=== PATIENT | male | born 1955 | race Caucasian/White ===

== ENCOUNTER → 2017-01-20 | Outpatient (REF) ==
--- NOTE | 2017-01-20 14:38 | REP ---
LEFT SHOULDER, THREE VIEWS: HISTORY: Degenerative joint disease. There is no acute fracture or dislocation. There is narrowing of the joint spaces. Osteophytes are present on the glenoid, acromion and clavicle. Calcifications are present medial to the neck of the humerus and inferomedial to the glenoid and coracoid processes. This represent ligamentous or tendon calcification. IMPRESSION: Degenerative change as described above. Signed by Juan Farrell MD 01/20/2017 02:41 P
== END ==
LOC: M SMT 13:43
PROVIDERS: ATTEND Internal Medicine
DX: M54.5 Low back pain (principal)